=== PATIENT | male | born 1975 | race Caucasian/White ===

== ENCOUNTER 2016-09-29 20:13 | Inpatient (IN) ==
[2016-09-29] MEDS ORDERED: metroNIDAZOLE INJ 500 MG in PREMIX 1 EACH IV STA (20:42)
[2016-09-29] MEDS ORDERED: DICYCLOMINE 20 MG/2 ML AMP IM ONE ×2 (20:42→20:50)
[2016-09-29] MEDS ORDERED: PANTOPRAZOLE 40 MG VIAL IV STA (20:42)
[2016-09-29] MEDS ORDERED: SODIUM CHLORIDE 0.9% 1,000 ML IV STA (20:42)
[2016-09-29] MEDS ORDERED: ONDANSETRON 4 MG/2 ML VIAL IV STA ×2 (20:42→22:16)
[2016-09-29] MEDS ORDERED: METOCLOPRAMIDE 10 MG/2 ML VIAL IV STA (20:42)
--- NOTE | 2016-09-29 20:47 | Emergency Department Note ---
Arrival - Arrival Chief Complaint: Abdominal / Flank Pain Stated Complaint: severe stomach pain ED Nursing Triage Note: pt to traige c/o abd pain since last . pt states pain would come / go but is worse after meals. Mode of Arrival: Ambulatory Limitations: No Limitations Source: Patient Time Seen by Provider: 09/29/16 20:42 - History of Present Illness HPI Narrative: This 41-year-old white male presents with one-week of persistent midepigastric abdominal pain associated with low-grade fever, nausea, and vomiting. He states pain is worse after meals but denies heartburn, belching, and water brash. He likewise denies any bright red blood per rectum or melena. The patient denies a history of pancreatitis, peptic ulcer disease, gallbladder problems, reflux, or colitis. He does have a history of fatty liver. Although currently uncomfortable he is in no acute medical distress. Onset (ago): week(s) (Patient presents 1 week post onset of symptoms) Allergies/Adverse Reactions: Allergies Allergy/AdvReac Type Severity Reaction Status Date / Time Amoxicillin [From Augmentin] AdvReac Gastrointestinal Verified 09/29/16 20:26 Upset clavulanic acid AdvReac Gastrointestinal Verified 09/29/16 20:26 [From Augmentin] Upset Home Medications: Home Medications Medication Instructions Recorded Confirmed Type Unable To Obtain [Unable to Obtain] 09/29/16 09/29/16 History Review of System - Review of System 12 point system: reviewed and no additional remarkable complaints except as stated - Review of System Constitutional: Present: as per HPI Gastrointestinal: Present: as per HPI Medical,Surgical,& Family Hx - Medical History Neurology: History of: Multiple Sclerosis Gastrointestinal: History of: Liver Problems (fatty liver) - Social History Smoking Status: Unknown if ever smoked Frequency of Alcohol Use: None Type of Drug Use: None Exam Physical Examination: GENERAL: Well developed, well nourished white male in no acute distress. HEENT: Normocephalic. No trauma. Moist mucous membranes. EOMI. PERRLA. ENT NML NECK: Supple. No adenopathy. CARDIAC: Regular. No murmurs. Heart rate 72 CHEST: Clear to auscultation. No respiratory distress. O2 sat 90 ABDOMEN: Distended and firm with midepigastric tenderness and hypoactive bowel sounds. EXTREMITIES: No trauma. Normal ROM. No pedal edema. SKIN: No diaphoresis. No rash. NEURO: Alert. Neuro intact. No focal deficits. Vital Signs: Vital Signs Temperature 98.5 F 09/29/16 20:20 Pulse Rate 72 09/29/16 20:20 Respiratory Rate 20 09/29/16 20:20 Blood Pressure 148/106 09/29/16 20:20 O2 Sat by Pulse Oximetry 98 09/29/16 20:20 Course - Reevaluation(s) Reevaluation #1: Discussed with patient the results of his studies which would indicate constipation, elevated LFTs outside the realm of fatty liver, and a 10 mm noncalcified pulmonary nodule all of which would be best served by hospitalization and workup. - Consultations Consultation #1: Discussed with hospitalist service who will admit for further evaluation and treatment. Results - Labs CBC & BMP: 09/29/16 20:47 09/29/16 20:47 Labs: I reviewed the laboratory noted the [id number] elevation in liver function studies. - Diagnostic Findings Procedure: Chest x-ray: image reviewed by me, report reviewed by me (Normal chest), CT Abdomen and Pelvis: image reviewed by me, report reviewed by me (10 mm pulmonary nodule, splenomegaly, severe fatty liver, fecal stasis) Disposition Clinical Impression: Abnormal liver functions, Fatty liver with splenomegaly, 10 mm pulmonary nodule , Constipation Case discussed with: patient, patient's family Disposition: Still a Patient Condition: Stable Time of Disposition: 22:33
[2016-09-29 20:49] LABS: Immature Granulocytes % 0.5 %; Immature Granulocytes Absolute 0.04 #; Mean Platelet Volume 10.2 FL (9.6-12.0); Monocytes % 7.8 % (1.7-12.7); Red Cell Distribution Width 12.3 % (9.3-17.3)
[2016-09-29] MEDS ORDERED: METOCLOPRAMIDE 10 MG/2 ML VIAL ONE (20:49)
[2016-09-29] MEDS ORDERED: ONDANSETRON 4 MG/2 ML VIAL ONE ×2 (20:49→22:18)
[2016-09-29] MEDS ORDERED: PANTOPRAZOLE 40 MG VIAL IV ONE (20:49)
[2016-09-29] MEDS ORDERED: metroNIDAZOLE 500 MG/100 ML PREMIX IV ONE (20:50)
[2016-09-29 20:57] LABS: Basophils % 0.5 % (0.0-0.8); Eosinophils # 0.2 10*3/uL (0.0-0.87); Eosinophils % 2.5 % (0.00-10.9); Hemoglobin 17.9 GM/DL (14.0-18.0); Lymphocytes # 0.9 10*3/uL (1.4-4.0); Lymphocytes % 12.4 % (21.2-54.2); Mean Corpuscular HGB Conc 36.9 GM/DL (32-36); Mean Corpuscular Hemoglobin 32 PG (27-34); Mean Corpuscular Volume 87.5 FL (87-102); Monocytes # 0.6 10*3/uL (0.11-0.8); Neutrophils # 5.8 10*3/uL (1.4-7.4); Neutrophils % 76.3 % (38.7-73.9); Platelet Count 191 T/CUMM (130-400); Red Blood Count 5.54 MC/CUMM (3.8-5.5); White Blood Count 7.6 T/CUMM (4-12)
--- NOTE | 2016-09-29 20:57 | EKG Report ---
Stationary ECG Study [facility] ER Test Date: 09/29/2016 8:56:33 PM Pat Name: LUIS MICHAELS Department: Room: Gender: M [employer]: ALESSANDRO : 1975 Requested by: Kenny Hines Order Number: [id number] Reading MD: OLIVIA CHOI Intervals [place] Rate: 70 P: 39 MS: 138 QRS: 56 QRSD: 90 T: 50 QT: 371 QTc: 392 Interpretive Statements SINUS RHYTHM Electronically Signed On 10-02-16 15:06:58 CDT by OLIVIA CHOI [email or web address]
[2016-09-29 21:00] LABS: Hematocrit 48.5 VOL% (42.0-52.0)
--- NOTE | 2016-09-29 21:19 | XRay Report ---
Portable chest. Indication: Generalized abdominal pain. Chest pain. Comparison: January 24, 2013. The heart is upper limits of normal in size. The pulmonary vasculature is normal. The lung cha are clear. Suspected calcified granuloma at the left lung base, stable. Degenerative or posttraumatic changes are seen at the left acromioclavicular joint. Impression: No acute abnormality or interval change seen. PROCEDURE INTERPRETED AT [facility] DEPARTMENT OF RADIOLOGY Final Report Signed by: Dr. Annabel Roy
[2016-09-29 21:23] LABS: Lactic Acid 1.2 MMOL/L (0.4-2.0)
[2016-09-29 21:27] LABS: Alanine Aminotransferase 484 U/L (16-61); Albumin 4.4 G/DL (3.4-5.0); Alkaline Phosphatase 232 U/L (45-117); Amylase 44 U/L (25-115); Aspartate Amino Transferase 396 U/L (0-37); Blood Urea Nitrogen 11 MG/DL (7-18); Glucose 84 MG/DL (74-106); Osmolality,Calculated 278.3 MOS/KG (273-304); Potassium 4.1 MMOL/L (3.5-5.1); Sodium 141 MMOL/L (136-145); Total Protein 7.3 G/DL (6.4-8.3); Troponin I Only < 0.015 NG/ML (0.00-0.045)
--- NOTE | 2016-09-29 22:09 | CT Report ---
CT of the abdomen and pelvis with intravenous contrast. No oral contrast was administered. 100 cc Omni 350. Axial images with sagittal and coronal reconstructions. Indication: Generalized abdominal pain. The heart is normal in size. There is a calcified granuloma in the left lingula. There is a noncalcified nonspecific pulmonary nodule in the medial aspects of the right lower lobe measuring 10.3 mm. The abdominal aorta is of normal caliber. A neurostimulator device is in place. The liver is normal in size. There is severe fatty infiltration of the liver. The spleen is enlarged with dimensions of 13 x 15 x 6 and a splenic index of 1170. Within the gallbladder, floating material is seen, probably representing calcium poor gallstones. There is no biliary ductal dilatation. There is no adrenal enlargement. No pancreatic abnormality is seen. There are subcentimeter lymph nodes present within the retroperitoneum. The gastric contour is grossly normal. The loops of small intestine are not dilated. Subcentimeter mesenteric lymph nodes are present. There is no small intestinal wall thickening seen. The terminal ileum and appendix present a normal appearance. There is moderately prominent fecal material throughout the length of the colon. The colon demonstrates no wall thickening. There are a few scattered diverticuli present. No evidence of obstruction. There is a left inguinal hernia containing only fat. There is calcification within a borderline enlarged prostate gland. There is no inguinal or iliac chain lymphadenopathy. There is exaggerated lordosis of the lumbar spine with osteophytes present anteriorly. Impression: 1. 10.3 mm nonspecific pulmonary nodule in the right lower lobe. PET scan recommended for further evaluation. 2. Severe fatty liver. 3. Splenomegaly. The CT exam was performed using one or more of the following dose reduction techniques: Automated exposure control, adjustment of the mA and/or kV according to patient size, or use of iterative reconstruction technique. PROCEDURE INTERPRETED AT [facility] DEPARTMENT OF RADIOLOGY Final Report Signed by: Dr. Annabel Roy
[2016-09-29] MEDS ORDERED: HYDROmorphone 2 MG/1 ML VIAL IV STA (22:16)
[2016-09-29] MEDS ORDERED: HYDROmorphone 2 MG/1 ML VIAL ONE (22:19)
[2016-09-29] MEDS ORDERED: METHYLNALTREXONE 12 MG/0.6 ML VIAL SUBCUT ONE (23:28)
[2016-09-29 23:43] LABS: Apearance,Urine CLEAR (Clear); Bilirubin,Urine Negative (Negative); Blood, Urine Negative (Negative); Glucose,Urine (UA) Negative (Negative); Ketones,Urine Negative (Negative); Mucus,Urine Occasional /LPF (Occasional); Nitrite,Urine Negative (Negative); Protein,Urine Negative; RBC,Urine <1 /HPF (0-4); Urine Color Amber (Yellow); Urine Specific Gravity 1.028 (1.001-1.035); Urine Urobilinogen < 2.0 EU/DL (0.2-1.0); WBC,Urine <1 /HPF (0-6)
--- NOTE | 2016-09-30 00:29 | Hospitalist History & Physical ---
Assessment and Plan (1) Abdominal pain Status: Acute Current Visit: Yes (2) Constipation Status: Acute Current Visit: Yes (3) History of multiple sclerosis Status: Acute Current Visit: Yes (4) Pulmonary nodule in right lower lobe Status: Acute Assessment and plan: Do feel that patient's abdominal pain is associated with constipation as documented on CT scan. He is on chronic Percocets will give him a dose of her left store. See if that helps and give him a dose of MiraLAX tonight.: Get Dr. Monte to see him for his increase in transaminases. This might just be a progression of the fatty liver although they seem a little bit on the higher side than normal for him. The CT scan of his abdomen recommended a PET scan for the nonspecific pulmonary nodule that will be ordered for in the morning Current Visit: Yes History of Present Illness Chief complaint: Abdominal pain History of present illness: Mr. Jhaveri is a 41 year old male with past medical history significant for fatty liver and multiple sclerosis who presents to our hospital complaining about abdominal pain. Said it started last . It has been steadily increasing. Decided to come up to our hospital for further evaluation. He reports some low-grade fever nausea and vomiting. The pain seems worse after meals. I was consulted to admit him to the emergency room he normally sees Dr. Monte. Home Medications Medication Instructions Recorded Confirmed Type Unable To Obtain [Unable to Obtain] 09/29/16 09/29/16 History Allergies Allergy/AdvReac Type Severity Reaction Status Date / Time Amoxicillin [From Augmentin] AdvReac Gastrointestinal Verified 09/29/16 20:26 Upset clavulanic acid AdvReac Gastrointestinal Verified 09/29/16 20:26 [From Augmentin] Upset Medical,Surgical,& Family Hx - Medical History Neurology: History of: Multiple Sclerosis Gastrointestinal: History of: Liver Problems (fatty liver) - Surgical History Orthopedic Surgeries: Surgical HX of;: Orthopedic Surgery - Family History Family History: Reports;: Family Cancer - Social History Smoking Status: Unknown if ever smoked Frequency of Alcohol Use: None Type of Drug Use: None 12 point system: reviewed and no additional remarkable complaints except as stated Exam - Constitutional Vitals: Period Temp Pulse Resp BP Sys/Hoffman Pulse Ox Last 24 Hr 98.5 F-98.5 F 70-76 16-20 128-148/79-106 97-99 General appearance: normal weight - Head Head exam: Present: normal inspection - Eye Eye exam: Present: EOMI Pupils: Present: SITA - ENT ENT exam: Present: normal exam - Neck Neck exam: Present: normal inspection - Respiratory Respiratory exam: Present: clear to auscultation bilaterally - Cardiovascular Cardiovascular exam: Present: regular rate and rhythm - GI/Abdominal GI/Abdominal exam: Present: normal bowel sounds, tenderness (Upper quadrants) - Extremities Exam Extremities exam: Present: normal inspection - Back Exam Back exam: Present: normal inspection - Neurological Exam Neurological exam: Present: alert - Psychiatric Psychiatric exam: Present: normal affect - Skin Skin exam: Present: normal color Results - Labs CBC & BMP: 09/29/16 20:47 09/29/16 20:47
[2016-09-30] MEDS: POLYETHYLENE GLYCOL POWDER 17 GM PACK PO SCH ×2 (01:03→10:22)
[2016-09-30 05:09] LABS: Hepatitis B Surface Ag Quant < 0.10 Index; Hepatitis B Surface Ag Result Negative (Negative)
[2016-09-30 05:42] LABS: Hepatitis A Ab IgM Quant 0.07 Index; Hepatitis A Ab IgM Result Negative (Negative); Hepatitis B Core IgM Quant 0.18 Index; Hepatitis B Core IgM Result Negative (Negative); Hepatitis C Virus Ab Quant 0.12 Index; Hepatitis C Virus Ab Result Negative (Negative)
[2016-09-30 06:33] LABS: Basophils % 0.4 % (0.0-0.8); Eosinophils # 0.1 10*3/uL (0.0-0.87); Eosinophils % 2.4 % (0.00-10.9); Hematocrit 43.9 VOL% (42.0-52.0); Hemoglobin 16.1 GM/DL (14.0-18.0); Immature Granulocytes % 0.4 %; Immature Granulocytes Absolute 0.02 #; Lymphocytes # 1.1 10*3/uL (1.4-4.0); Mean Corpuscular HGB Conc 36.7 GM/DL (32-36); Mean Corpuscular Hemoglobin 32 PG (27-34); Mean Corpuscular Volume 87.8 FL (87-102); Mean Platelet Volume 11.1 FL (9.6-12.0); Monocytes # 0.5 10*3/uL (0.11-0.8); Neutrophils # 3.8 10*3/uL (1.4-7.4); Neutrophils % 68.8 % (38.7-73.9); Platelet Count 156 T/CUMM (130-400); Red Cell Distribution Width 12.5 % (9.3-17.3); White Blood Count 5.5 T/CUMM (4-12)
[2016-09-30 06:41] LABS: Albumin 3.8 G/DL (3.4-5.0); Calcium 8.3 MG/DL (8.5-10.1); Osmolality,Calculated 280.1 MOS/KG (273-304); Potassium 3.7 MMOL/L (3.5-5.1); Total Protein 6.2 G/DL (6.4-8.3)
[2016-09-30] MEDS: PANTOPRAZOLE 40 MG TABLET PO SCH (10:22)
[2016-09-30] MEDS: ENOXAPARIN 40 MG/0.4 ML SYRINGE SUBCUT SCH (10:23)
--- NOTE | 2016-09-30 11:27 | Gastrointestinal Consult Note ---
Assessment and Plan (1) Abdominal pain Status: Acute Assessment and plan: 09/30-1 week history of abdominal pain with episodes of nausea and vomiting. This is now improved following large bowel movement last night. History of daily Percocet use. CT findings noted below with questionable gallstone. Plan an addendum to follow Dr. Monte. Current Visit: Yes (2) Elevated liver enzymes Status: Acute Assessment and plan: 09/30-findings of elevated liver enzymes on admission, now slightly trending upward. History reported by patient of elevated enzymes over the last year with improvement following decrease in medication therapy. Questionable finding on CT of gallstone. Obtain abdominal ultrasound tomorrow to further evaluate. Recheck liver enzymes in the morning. Plan an addendum to followed by Dr. Monte. Current Visit: Yes History of Present Illness Chief complaint: Abdominal pain, elevated liver enzymes History of present illness: Mr. Jhaveri is a 41 year old male who presented to the hospital with complaints of abdominal pain 4 days. Patient states that one week ago he had an onset of upper abdominal pain that came on rather gradually. He states his the days progressed the pain slowly intensified and became associated with nausea and vomiting as well as low-grade fever a couple of days ago. He states that the pain would worsen when he would eat and nothing seemed to improve the pain for the most part. Patient denies any coffee-ground emesis or hematemesis with the vomiting. He states that he has been having bowel movements upwards of 5-6 per day which he describes as a normal movement without liquid stool. He states that this is his normal bowel pattern. He denies any melena or hematochezia associated with this. Patient states that he had a colonoscopy when he was in his 20s for symptoms of IBS with varying episodes of constipation and diarrhea however states that this seemed to have resolved years ago. Patient takes Percocets daily for history of MS. He also has a history of elevated liver enzymes which she is seen Dr. Monte in the past far. He states at that time some of his medications were decreased and his liver enzymes reportedly improved. On admission CT with IV contrast noted to show a right lower lobe pulmonary nodule, fatty liver, and splenomegaly. Also noted moderate prominent fecal material throughout the length of the colon with no wall thickening or obstruction. no gallbladder findings were noted other than floating material possibly representing calcium for gallstones. No ductal dilatation noted. Patient denies family history of gallbladder problems. On admission patient's transaminases noted to be elevated with AST 396, ALT 484, alkaline phosphatase 232. Bilirubin also elevated at 5.8. These are slightly more elevated today. Hepatitis panel is negative. He denies history of alcohol use now or in the past. Does report he was given laxatives last night and had a very large bowel movement and at this time his abdominal pain is now resolved. Home Medications Medication Instructions Recorded Confirmed Type Cholecalciferol (Vitamin D3) 2,000 unit PO DAILY 09/30/16 09/30/16 History [Vitamin D3] Glatiramer Acetate [Copaxone] 40 mg SQ QOTHER DAY 09/30/16 09/30/16 History Mirtazapine 15 mg PO BEDTIME 09/30/16 09/30/16 History Oxycodone HCl/Acetaminophen 7.5 - 325 mg PO Q4-6H PRN 09/30/16 09/30/16 History [Percocet 7.5-325 mg Tablet] Testosterone [Androgel 1.62% Gel 81 mg TOP DAILY 09/30/16 09/30/16 History PUMP] Vitamin B Complex 1,000 mcg PO DAILY 09/30/16 09/30/16 History Zolpidem [Ambien] 10 mg PO BEDTIME 09/30/16 09/30/16 History Allergies Allergy/AdvReac Type Severity Reaction Status Date / Time Amoxicillin [From Augmentin] AdvReac Gastrointestinal Verified 09/29/16 20:26 Upset clavulanic acid AdvReac Gastrointestinal Verified 09/29/16 20:26 [From Augmentin] Upset Medical,Surgical,& Family Hx - Medical History Neurology: History of: Multiple Sclerosis HEENT: History of: Eye Problem (wear glasses) Respiratory: History of: Pneumonia (2016) Gastrointestinal: History of: Liver Problems (fatty liver) Hematology: No history of: Blood Transfusion Reaction - Surgical History Thoracic Surgeries: Patient denies;: Organ Transplant, Lobectomy Neurologic Surgeries: Patient denies: Neurologic Surgery HEENT Surgeries: Surgical HX of: Eye Surgery Patient denies: Tonsilectomy & Adenoidectomy Abdominal Surgeries: Surgical HX of: Colonoscopy Orthopedic Surgeries: Surgical HX of;: Implanted Devices (medication pump), Orthopedic Surgery (right ankle, screws to both feet), Spinal Surgery (cyst removed) - Family History Family History: Reports;: Family Cancer (sister and dad), Family Diabetes ( sister and dad), Family Hypertension, Family Stroke (grandparents) - Social History Smoking Status: Never smoker Frequency of Alcohol Use: None Type of Drug Use: None 12 point system: reviewed and no additional remarkable complaints except as stated - Constitutional Constitutional: Present: as per HPI - EENT Eyes: Present: as per HPI Ears: Present: as per HPI Nose, mouth and throat: Present: as per HPI - Cardiovascular Cardiovascular: Present: as per HPI - Respiratory Respiratory: Present: as per HPI - Gastrointestinal Gastrointestinal: Present: as per HPI, abdominal pain, nausea, vomiting - Genitourinary Genitourinary: Present: as per HPI - Musculoskeletal Musculoskeletal: Present: as per HPI, arthralgias - Neurological Neurological: Present: as per HPI - Psychiatric Psychiatric: Present: as per HPI - Endocrine Endocrine: Present: as per HPI - Hematologic/Lymphatic Hematologic/Lymphatic: Present: as per HPI Exam - Constitutional Vitals: Period Temp Pulse Resp BP Sys/Hoffman Pulse Ox Last 24 Hr 97.2 F-98.5 F 58-80 16-20 113-148/68-106 95-99 General appearance: normal weight, no acute distress - Head Head exam: Present: normal inspection, normocephalic - Eye Eye exam: Present: other (Lids and conjunctive are unremarkable). Absent: scleral icterus - ENT ENT exam: Present: normal exam, normal oropharynx - Neck Neck exam: Present: normal inspection - Respiratory Respiratory exam: Present: clear to auscultation bilaterally. Absent: rales, rhonchi, wheezes - Cardiovascular Cardiovascular exam: Present: regular rate and rhythm. Absent: diastolic murmur , JVD, systolic murmur - GI/Abdominal GI/Abdominal exam: Present: normal bowel sounds, soft. Absent: ascites, distended, mass, organomegaly, tenderness - Extremities Exam Extremities exam: Present: normal inspection, full ROM - Back Exam Back exam: Present: normal inspection - Neurological Exam Neurological exam: Present: alert, oriented X3 - Psychiatric Psychiatric exam: Present: normal affect, normal mood - Skin Skin exam: Present: normal color, warm, dry Results - Labs CBC & BMP: 09/30/16 04:42 09/30/16 04:42 Lab Results: I have reviewed the past 24 hour labs Quality Measures - Stroke Symptom Onset Unknown: No
[2016-09-30] MEDS: GLATIRAMER ACETATE 40 MG SQ SCH (14:29)
[2016-09-30] MEDS: CIPROFLOXACIN INJ 400 MG in PREMIX 1 EACH IV SCH (18:08)
[2016-09-30] MEDS: oxyCODONE/ACETAMINOPHEN 5-325 MG TABLET PO PRN (18:09)
[2016-09-30] MEDS: ZALEPLON 5 MG CAPSULE PO SCH (21:29)
[2016-09-30] MEDS: MIRTAZAPINE 15 MG TABLET PO SCH (21:29)
[2016-10-01] MEDS: CIPROFLOXACIN INJ 400 MG in PREMIX 1 EACH IV SCH ×2 (04:22→16:54)
[2016-10-01 07:21] LABS: Albumin 3.7 G/DL (3.4-5.0); Bilirubin,Direct 3.8 MG/DL (0.0-0.20); Bilirubin,Indirect 3.1 MG/DL (0.0-1.0); Bilirubin,Total 6.9 MG/DL (0.2-1.0); Total Protein 5.7 G/DL (6.4-8.3)
--- NOTE | 2016-10-01 09:06 | Ultrasound Report ---
History is abdominal pain and elevated liver enzymes The liver is 16.9 cm in length. There is increased echogenicity of the liver with attenuation of the ultrasound beam There are multiple gallstones with large amount of sludge within the gallbladder. Gallbladder wall thickness measures up to 4.5 mm with mild indistinctness of the gallbladder wall No biliary ductal dilatation is seen The spleen is 14.9 cm in length No renal hydronephrosis seen bilaterally The visualized pancreas, IVC, and aorta are normal in size Impression: 1. Cholelithiasis with large amount of gallbladder sludge and diffuse gallbladder wall thickening which is nonspecific but raises question of acute cholecystitis. Clinical correlation requested 2. Fatty infiltration of the liver 3. Mild splenomegaly The Ultrasound images were captured and stored. PROCEDURE INTERPRETED AT [facility] DEPARTMENT OF RADIOLOGY Final Report Signed by: Dr. Mei Roy
[2016-10-01] MEDS: ENOXAPARIN 40 MG/0.4 ML SYRINGE SUBCUT SCH (10:16)
[2016-10-01] MEDS: PANTOPRAZOLE 40 MG TABLET PO SCH (10:17)
[2016-10-01] MEDS: POLYETHYLENE GLYCOL POWDER 17 GM PACK PO SCH (10:17)
--- NOTE | 2016-10-01 11:17 | Gastrointestinal Progress Note ---
Assessment and Plan - Time spent with patient Time spent with patient: Greater than 30 minutes (1) Cholelithiasis and acute cholecystitis with obstruction Status: Acute Current Visit: Yes (2) Elevated liver enzymes Status: Acute Current Visit: Yes (3) Other specified counseling Status: Acute Current Visit: Yes Gastroenterology - PN: Subj Interval history: PLEASE NOTE -- automatic citation of patient information is unavoidable in this electronic note. I have made a reasonable effort to review the information cited , but it is not a part of my evaluation, impression, or recommendation unless specifically discussed in the dictated text that follows. As well, voice recognition software was used in the creation of this clinical note. Reasonable effort was made to identify and correct gross errors. Despite proofreading, errors in timber incisor operator may be present, including nonsense verbiage at times. If you encounter such an error, please contact me at for discussion and correction. -- Kyree Chief complaint: abdominal pain Subjective: the patient is a 41-year-old male seen for follow-up of abdominal pain and elevated liver associated enzymes. Liver associated enzymes remain elevated but patient continues to deny clinical symptoms. Vital signs have remained stable and he has demonstrated no fever. He is eating and drinking comfortably. Antibiotic was started yesterday and he seems to be tolerating that. He currently reports feeling about the same as yesterday. He is not having fever, chills, nausea, vomiting, or abdominal pain. Medications: ciprofloxacin, Lovenox, Remeron, Copaxone, Zofran, Percocet, Protonix, MiraLAX, Sonata Review of Symptoms: 12 point review of symptoms was negative except as noted above Physical examination: Vital Signs: Current vital signs reviewed. General Appearance: well-appearing. Not acutely ill. Head: Normocephalic. Eyes: positive scleral icterus. No scleral injection. No conjunctival pallor. Oral Cavity: Odor of breath was normal. No drooling was observed. Lips showed no abnormalities. Lungs: Respiration rhythm and depth was normal. Cardiovascular: Heart rate and rhythm were normal. Abdomen: abdomen was not distended. Abdominal auscultation revealed no abnormalities. Ascites was not discovered. Abdominal palpation revealed no tenderness and no hepatosplenomegaly. Musculoskeletal System: musculoskeletal system was grossly normal. Neurological: level of consciousness was normal. Speech was normal. No coordination/cerebellum abnormalities were noted. Skin: Gen. appearance was normal. There was obvious jaundice. No skin lesions were appreciated. Laboratory: total bilirubin 6.9, direct bilirubin 3.8, AST 443, ALT 815, alkaline phosphatase 233, hepatitis panel negative Radiology: -- right upper quadrant ultrasound, October 01, 2016: cholelithiasis with large amount of gallbladder sludge and diffuse gallbladder wall thickening consistent with acute cholecystitis; no biliary ductal dilation; fatty infiltration of the liver; mild splenomegaly -- CT of the abdomen and pelvis, September 30, 2016: fatty infiltration of the liver; cholelithiasis; no biliary ductal dilation Impressions: 1. Cholelithiasis with possible cholecystitis -- this is consistent with the patient's reported index abdominal pain. The pattern of enzyme elevation is also consistent with choledocholithiasis though direct bilirubin is not quite as high as I might expect and there is no radiologic evidence of biliary ductal dilation. If cholecystitis is present, it is surprising. It is possible that his underlying neuropathy is mitigating this in some way. I recommend surgical consultation for evaluation need for cholecystectomy. I recommend HIDA scan for further evaluation of hepatobiliary function and screen for biliary obstruction. We will follow up with further recommendations pending the result of that study. 2. Elevated liver associated enzymes -- there is evidence of both obstruction and hepatocellular insult. The overall pattern may be multifactorial with the acute component related to gallbladder disease. As discussed above, I will order HIDA scan and follow up with further recommendations. 3. Other specified counseling -- Patient seen for greater than 30 minutes. Greater than 50% of this time was spent counseling regarding differential diagnosis, likely diagnosis,, diagnostic and therapeutic options, risks, benefits, and alternatives to procedures and medications, informed consent, and plan of care generally. Patient has expressed understanding and wishes to proceed. Recommendations: -- continued supportive care -- continue monitoring liver associated enzymes -- HIDA scan -- general surgery consultation -- we will continue to follow with you Exam (Progress Note) - Constitutional Vitals: Period Temp Pulse Resp BP Sys/Hoffman Pulse Ox Last 24 Hr 97 F-98.6 F 61-76 18-20 92-132/55-80 92-97 Results - Labs CBC & BMP: 09/30/16 04:42 09/30/16 04:42
--- NOTE | 2016-10-01 14:31 | General Surgery Consult Note ---
Assessment and Plan (1) Cholelithiasis and acute cholecystitis with obstruction Status: Acute Assessment and plan: This patient does have gallstones and some wall thickening. However, his exam is completely benign he has no tenderness to support a diagnosis of cholecystitis at this time. In addition, his bilirubin and LFTs indicate the possibility of choledocholithiasis even though the bile duct has not become dilated on imaging. HIDA scan has been ordered for tomorrow. I will continue to follow the patient but I think an ERCP will be beneficial prior to any surgery to evaluate his bile duct more carefully. In addition, the splenomegaly may indicate some degree of cirrhosis which could explain some of the liver function panel abnormalities and we have to consider this carefully prior to pursuing any surgery and would like to see these numbers are normalized as much as possible prior to pursuing any sort of surgery on the gallbladder. However, given his history of abdominal pain in the upper quadrant and is positive imaging findings I think addressing his gallbladder during this hospital stay would be beneficial if it can be done safely. Current Visit: Yes History of Present Illness Chief complaint: Abdominal pain with jaundice History of present illness: Mr. Jhaveri is a 41 year old male admitted with a one-week history of intermittent bilateral upper quadrant abdominal pain with some nausea but no vomiting. He was admitted to the hospital and has developed worsening jaundice and ultrasound today showed stones with gallbladder wall thickening to 4.5 mm. Bile duct was normal in size on ultrasound and on recent CT scan with the patient also has splenomegaly. Platelet count is normal. Patient has nonspecific elevated liver function panel. Home Medications Medication Instructions Recorded Confirmed Type Cholecalciferol (Vitamin D3) 2,000 unit PO DAILY 09/30/16 09/30/16 History [Vitamin D3] Glatiramer Acetate [Copaxone] 40 mg SQ QOTHER DAY 09/30/16 09/30/16 History Mirtazapine 15 mg PO BEDTIME 09/30/16 09/30/16 History Oxycodone HCl/Acetaminophen 7.5 - 325 mg PO Q4-6H PRN 09/30/16 09/30/16 History [Percocet 7.5-325 mg Tablet] Testosterone [Androgel 1.62% Gel 81 mg TOP DAILY 09/30/16 09/30/16 History PUMP] Vitamin B Complex 1,000 mcg PO DAILY 09/30/16 09/30/16 History Zolpidem [Ambien] 10 mg PO BEDTIME 09/30/16 09/30/16 History Allergies Allergy/AdvReac Type Severity Reaction Status Date / Time Amoxicillin [From Augmentin] AdvReac Gastrointestinal Verified 09/29/16 20:26 Upset clavulanic acid AdvReac Gastrointestinal Verified 09/29/16 20:26 [From Augmentin] Upset Medical,Surgical,& Family Hx - Medical History Neurology: History of: Multiple Sclerosis HEENT: History of: Eye Problem (wear glasses) Respiratory: History of: Pneumonia (2016) Gastrointestinal: History of: Liver Problems (fatty liver) Hematology: No history of: Blood Transfusion Reaction - Surgical History Thoracic Surgeries: Patient denies;: Organ Transplant, Lobectomy Neurologic Surgeries: Patient denies: Neurologic Surgery HEENT Surgeries: Surgical HX of: Eye Surgery Patient denies: Tonsilectomy & Adenoidectomy Abdominal Surgeries: Surgical HX of: Colonoscopy Orthopedic Surgeries: Surgical HX of;: Implanted Devices (medication pump), Orthopedic Surgery (right ankle, screws to both feet), Spinal Surgery (cyst removed) - Family History Family History: Reports;: Family Cancer (sister and dad), Family Diabetes ( sister and dad), Family Hypertension, Family Stroke (grandparents) - Social History Smoking Status: Never smoker Frequency of Alcohol Use: None Type of Drug Use: None - Constitutional Constitutional: Present: as per HPI - EENT Nose, mouth and throat: Present: as per HPI - Cardiovascular Cardiovascular: Present: as per HPI - Respiratory Respiratory: Present: as per HPI - Gastrointestinal Gastrointestinal: Present: as per HPI - Genitourinary Genitourinary: Present: as per HPI - Musculoskeletal Musculoskeletal: Present: as per HPI - Neurological Neurological: Present: as per HPI - Endocrine Endocrine: Present: as per HPI Hematologic/Lymphatic: Present: as per HPI Exam - Constitutional Vitals: Period Temp Pulse Resp BP Sys/Hoffman Pulse Ox Last 24 Hr 97 F-98.5 F 61-76 18-19 92-126/55-80 92-97 General appearance: no acute distress, over weight - Head Head exam: Present: normal inspection, normocephalic - Eye Eye exam: Present: EOMI, scleral icterus Pupils: Present: SITA - ENT ENT exam: Present: normal exam Mouth exam: Present: normal external inspection, normal voice - Neck Neck exam: Present: normal inspection, trachea midline - Respiratory Respiratory exam: Present: clear to auscultation bilaterally. Absent: accessory muscle use, chest wall tenderness - Cardiovascular Cardiovascular exam: Present: RRR. Absent: systolic murmur, tachycardia - GI/Abdominal GI/Abdominal exam: Present: soft. Absent: Mejia's sign, tenderness, rebound - Extremities Exam Extremities exam: Present: normal inspection, normal capillary refill - Back Exam Back exam: Present: normal inspection - Neurological Exam Neurological exam: Present: alert, oriented X3 Speech: Present: normal - Skin Skin exam: Present: normal color, warm Quality Measures - Stroke Symptom Onset Unknown: No Results - Labs CBC & BMP: 09/30/16 04:42 09/30/16 04:42 - Diagnostic Findings Procedure: CT Abdomen and Pelvis: image reviewed by me, report reviewed by me, Ultrasound: report reviewed by me
[2016-10-01] MEDS: oxyCODONE/ACETAMINOPHEN 5-325 MG TABLET PO PRN (14:45)
--- NOTE | 2016-10-01 17:07 | Hospitalist Progress Note ---
Assessment and Plan (1) Abdominal pain Status: Acute Current Visit: Yes (2) Constipation Status: Acute Current Visit: Yes (3) History of multiple sclerosis Status: Acute Current Visit: Yes (4) Pulmonary nodule in right lower lobe Status: Acute Current Visit: Yes (5) Cholelithiasis and acute cholecystitis with obstruction Status: Acute Assessment and plan: HIDA scan tomorrow GI and surgery assisting Current Visit: Yes Hospitalist: Subjective Interval history: No acute events overnight. Patient denies abdominal pain, N/V. Exam - Constitutional Vitals: Period Temp Pulse Resp BP Sys/Hoffman Pulse Ox Last 24 Hr 97 F-98.5 F 61-76 18-19 92-126/55-80 92-96 General appearance: over weight - Head Head exam: Present: normocephalic, atraumatic - Eye Eye exam: Present: EOMI Pupils: Present: SITA - ENT ENT exam: Present: normal exam - Neck Neck exam: Present: normal inspection - Respiratory Respiratory exam: Present: clear to auscultation bilaterally. Absent: rhonchi, wheezes - Cardiovascular Cardiovascular exam: Present: regular rate and rhythm - GI/Abdominal GI/Abdominal exam: Present: normal bowel sounds, soft. Absent: tenderness, rebound - Extremities Exam Extremities exam: Present: normal inspection - Back Exam Back exam: Present: normal inspection - Neurological Exam Neurological exam: Present: alert, oriented X3 - Psychiatric Psychiatric exam: Present: normal affect, normal mood - Skin Skin exam: Present: warm, intact Results - Labs CBC & BMP: 09/30/16 04:42 09/30/16 04:42 Quality Measures - Stroke Symptom Onset Unknown: No
[2016-10-01] MEDS: MIRTAZAPINE 15 MG TABLET PO SCH (20:43)
[2016-10-01] MEDS: ZALEPLON 5 MG CAPSULE PO SCH (20:43)
[2016-10-02] MEDS: CIPROFLOXACIN INJ 400 MG in PREMIX 1 EACH IV SCH ×2 (04:29→15:45)
--- NOTE | 2016-10-02 09:09 | Nuclear Medicine Report ---
HIDA scan with CCK. Indication: Right upper quadrant pain. Following the intravenous administration of 5 mCi technetium 99m Choletec, hepatic excretion is prompt and uniform. Gallbladder activity can be seen by 20 minutes. Bowel activity can be seen by 20 minutes. Following the oral administration of 8 ounces of ensure, and ejection fraction was calculated. Ejection fraction is 8%. No pain was experienced. Normal ejection fraction with oral stimulation, 35% or greater. Impression: Findings consistent with gallbladder dyskinesia. PROCEDURE INTERPRETED AT [facility] DEPARTMENT OF RADIOLOGY Final Report Signed by: Dr. Annabel Roy
[2016-10-02] MEDS: GLATIRAMER ACETATE 40 MG SQ SCH (09:41)
[2016-10-02] MEDS: ENOXAPARIN 40 MG/0.4 ML SYRINGE SUBCUT SCH (09:41)
[2016-10-02] MEDS: PANTOPRAZOLE 40 MG TABLET PO SCH (09:42)
[2016-10-02] MEDS: POLYETHYLENE GLYCOL POWDER 17 GM PACK PO SCH (09:42)
--- NOTE | 2016-10-02 09:51 | Gastrointestinal Progress Note ---
Assessment and Plan (1) Cholelithiasis and acute cholecystitis with obstruction Status: Acute Current Visit: Yes (2) Elevated liver enzymes Status: Acute Current Visit: Yes (3) Other specified counseling Status: Acute Current Visit: Yes Gastroenterology - PN: Subj Interval history: PLEASE NOTE -- automatic citation of patient information is unavoidable in this electronic note. I have made a reasonable effort to review the information cited , but it is not a part of my evaluation, impression, or recommendation unless specifically discussed in the dictated text that follows. As well, voice recognition software was used in the creation of this clinical note. Reasonable effort was made to identify and correct gross errors. Despite proofreading, errors in inspector fuel hose may be present, including nonsense verbiage at times. If you encounter such an error, please contact me at [phone] for discussion and correction. -- Kyree Chief complaint: abdominal pain Subjective: the patient is a 41-year-old male seen for follow-up of abdominal pain and elevated liver associated enzymes. Vital signs have remained stable and he has demonstrated no fever. He is eating and drinking comfortably. He underwent HIDA scan today with finding of biliary dyskinesia but no evidence of biliary obstruction. He currently reports feeling about the same as yesterday. He is not having fever, chills, nausea, vomiting, or abdominal pain. Case discussed with Dr. Ye who plans to take the patient for cholecystectomy with intraoperative cholangiogram tomorrow. Medications: ciprofloxacin, Lovenox, Remeron, Copaxone, Zofran, Percocet, Protonix, MiraLAX, Sonata Review of Symptoms: 12 point review of symptoms was negative except as noted above Physical examination: Vital Signs: Current vital signs reviewed. General Appearance: well-appearing. Not acutely ill. Head: Normocephalic. Eyes: positive scleral icterus. No scleral injection. No conjunctival pallor. Oral Cavity: Odor of breath was normal. No drooling was observed. Lips showed no abnormalities. Lungs: Respiration rhythm and depth was normal. Cardiovascular: Heart rate and rhythm were normal. Abdomen: abdomen was not distended. Abdominal auscultation revealed no abnormalities. Ascites was not discovered. Abdominal palpation revealed no tenderness and no hepatosplenomegaly. Musculoskeletal System: musculoskeletal system was grossly normal. Neurological: level of consciousness was normal. Speech was normal. No coordination/cerebellum abnormalities were noted. Skin: Gen. appearance was normal. There was obvious jaundice. No skin lesions were appreciated. Laboratory: ALT 733, AST 238, total bilirubin 4.9, alkaline phosphatase 247 Radiology: -- HIDA scan, October 02, 2016: prompt hepatic uptake and uniform hepatic excretion ; timely gallbladder activity; timely bowel activity; decreased ejection fraction (8%); no pain experienced; findings consistent with gallbladder dyskinesia -- right upper quadrant ultrasound, October 01, 2016: cholelithiasis with large amount of gallbladder sludge and diffuse gallbladder wall thickening consistent with acute cholecystitis; no biliary ductal dilation; fatty infiltration of the liver; mild splenomegaly -- CT of the abdomen and pelvis, September 30, 2016: fatty infiltration of the liver; cholelithiasis; no biliary ductal dilation Impressions: 1. Cholelithiasis with possible cholecystitis -- HIDA scan is consistent with gallbladder dyskinesia and inconsistent with extrahepatic biliary obstruction. There is evidence of cholelithiasis and it is possible the patient is experiencing transient papillary obstruction contributing to this problem. I agree with Dr. Ye that cholecystectomy with intraoperative: Paulo Bernardo is the most reasonable next out. 2. Elevated liver associated enzymes -- HIDA scan demonstrated prompt uptake and excretion of radio tracer, inconsistent with intrahepatic cholestasis. As discussed, patient will go for cholecystectomy tomorrow and we should monitor her liver associated enzymes until normal. 3. Other specified counseling -- Patient seen for greater than 30 minutes. Greater than 50% of this time was spent counseling regarding differential diagnosis, likely diagnosis,, diagnostic and therapeutic options, risks, benefits, and alternatives to procedures and medications, informed consent, and plan of care generally. Patient has expressed understanding and wishes to proceed. Recommendations: -- continued supportive care -- continue monitoring liver associated enzymes -- agree with cholecystectomy with intraoperative cholangiogram -- we will continue to follow with you. Dr. Monte will resume G.I. care for this patient tomorrow. Exam (Progress Note) - Constitutional Vitals: Period Temp Pulse Resp BP Sys/Hoffman Pulse Ox Last 24 Hr 97.6 F-98 F 59-65 18-20 106-137/57-85 92-97 Results - Labs CBC & BMP: 09/30/16 04:42 09/30/16 04:42
[2016-10-02 10:33] LABS: Albumin 4.1 G/DL (3.4-5.0); Bilirubin,Direct 2.4 MG/DL (0.0-0.20); Bilirubin,Indirect 2.5 MG/DL (0.0-1.0); Bilirubin,Total 4.9 MG/DL (0.2-1.0); Total Protein 6.7 G/DL (6.4-8.3)
[2016-10-02] MEDS: oxyCODONE/ACETAMINOPHEN 5-325 MG TABLET PO PRN (13:37)
[2016-10-02] MEDS ORDERED: MAGNESIUM HYDROXIDE SUSP 30 ML UDCUP PO PRN (14:27)
[2016-10-02] MEDS: MORPHINE 2 MG/1 ML SYRINGE IV PRN (14:56)
--- NOTE | 2016-10-02 16:09 | Hospitalist Progress Note ---
Assessment and Plan (1) Abdominal pain Status: Acute Assessment and plan: HIDA scan today consistent with gallbladder dyskinesia Possible cholecystectomy with intraoperative cholangiogram tomorrow IV morphine for pain Current Visit: Yes (2) Constipation Status: Acute Current Visit: Yes (3) History of multiple sclerosis Status: Acute Current Visit: Yes (4) Pulmonary nodule in right lower lobe Status: Acute Current Visit: Yes (5) Cholelithiasis and acute cholecystitis with obstruction Status: Acute Assessment and plan: GI and surgery assisting Current Visit: Yes Hospitalist: Subjective Interval history: No acute events overnight. Today reports abdominal pain, the same as on admission. Feels like he is constipated. Exam - Constitutional Vitals: Period Temp Pulse Resp BP Sys/Hoffman Pulse Ox Last 24 Hr 97.6 F-98.6 F 59-67 18-20 106-137/66-82 94-97 General appearance: over weight - Head Head exam: Present: normocephalic, atraumatic - Eye Eye exam: Present: EOMI Pupils: Present: SITA - ENT ENT exam: Present: normal exam - Neck Neck exam: Present: normal inspection - Respiratory Respiratory exam: Present: clear to auscultation bilaterally. Absent: wheezes - Cardiovascular Cardiovascular exam: Present: regular rate and rhythm - GI/Abdominal GI/Abdominal exam: Present: normal bowel sounds, soft. Absent: tenderness, rebound - Extremities Exam Extremities exam: Present: normal inspection - Back Exam Back exam: Present: normal inspection - Neurological Exam Neurological exam: Present: alert, oriented X3 - Psychiatric Psychiatric exam: Present: normal affect, normal mood - Skin Skin exam: Present: warm, intact Results - Labs CBC & BMP: 09/30/16 04:42 09/30/16 04:42 Quality Measures - Stroke Symptom Onset Unknown: No
[2016-10-02] MEDS: MIRTAZAPINE 15 MG TABLET PO SCH (20:42)
[2016-10-02] MEDS: ZALEPLON 5 MG CAPSULE PO SCH (20:42)
[2016-10-03] MEDS: CIPROFLOXACIN INJ 400 MG in PREMIX 1 EACH IV SCH ×2 (04:22→16:45)
[2016-10-03 05:41] LABS: Albumin 3.9 G/DL (3.4-5.0); Bilirubin,Direct 4.7 MG/DL (0.0-0.20); Bilirubin,Indirect 3.7 MG/DL (0.0-1.0); Bilirubin,Total 8.4 MG/DL (0.2-1.0); Total Protein 6.2 G/DL (6.4-8.3)
--- NOTE | 2016-10-03 06:32 | General Surgery Progress Note ---
Assessment and Plan (1) Cholelithiasis and acute cholecystitis with obstruction Status: Acute Assessment and plan: The patient's bilirubin has trended back up. I have discussed this case with Dr. Monte. Plans are being made for ERCP today. Interval cholecystectomy will be recommended pending the results of the ERCP. Current Visit: Yes Subjective Patient reports: Present: no new complaints, still having pain, nausea, afebrile Narrative: The bilirubin has gone back up to 8 today. It is about half conjugated and half unconjugated. The remainder of his LFTs are still elevated as well. Exam - Constitutional Vitals: Period Temp Pulse Resp BP Sys/Hoffman Pulse Ox Last 24 Hr 98.1 F-99.4 F 67-76 17-71 120-137/66-79 94-98 General appearance: no acute distress, over weight - Head Head exam: Present: normal inspection, normocephalic - Eye Eye exam: Present: EOMI, scleral icterus Pupils: Present: SITA - ENT ENT exam: Present: normal exam Mouth exam: Present: normal external inspection, normal voice - Neck Neck exam: Present: normal inspection, trachea midline - Respiratory Respiratory exam: Present: clear to auscultation bilaterally. Absent: accessory muscle use, chest wall tenderness - Cardiovascular Cardiovascular exam: Present: RRR. Absent: systolic murmur, tachycardia - GI/Abdominal GI/Abdominal exam: Present: normal bowel sounds, tenderness, soft. Absent: guarding, Mejia's sign, rebound - Extremities Exam Extremities exam: Present: normal inspection, normal capillary refill - Back Exam Back exam: Present: normal inspection - Neurological Exam Neurological exam: Present: alert, oriented X3 Speech: Present: normal - Skin Skin exam: Present: normal color, warm Results - Labs CBC & BMP: 09/30/16 04:42 09/30/16 04:42 Quality Measures - Stroke Symptom Onset Unknown: No
[2016-10-03] MEDS: ONDANSETRON 4 MG/2 ML VIAL IV PRN ×2 (06:56→17:58)
[2016-10-03 09:01] LABS: Basophils % 0.4 % (0.0-0.8); Eosinophils # 0.1 10*3/uL (0.0-0.87); Eosinophils % 1.7 % (0.00-10.9); Hematocrit 48.1 VOL% (42.0-52.0); Hemoglobin 17.3 GM/DL (14.0-18.0); Immature Granulocytes % 0.5 %; Immature Granulocytes Absolute 0.04 #; Lymphocytes # 0.9 10*3/uL (1.4-4.0); Lymphocytes % 11.2 % (21.2-54.2); Mean Corpuscular Hemoglobin 32 PG (27-34); Mean Corpuscular Volume 89.9 FL (87-102); Mean Platelet Volume 11.6 FL (9.6-12.0); Monocytes # 0.8 10*3/uL (0.11-0.8); Monocytes % 9.8 % (1.7-12.7); Neutrophils # 6.2 10*3/uL (1.4-7.4); Neutrophils % 76.4 % (38.7-73.9); Platelet Count 159 T/CUMM (130-400); Red Blood Count 5.35 MC/CUMM (3.8-5.5); White Blood Count 8.1 T/CUMM (4-12)
[2016-10-03 09:46] LABS: PT Patient Result 10.7 SECS
[2016-10-03] MEDS: ENOXAPARIN 40 MG/0.4 ML SYRINGE SUBCUT SCH (12:55)
[2016-10-03] MEDS ORDERED: fentaNYL 100 MCG/2 ML VIAL ONE (13:05)
[2016-10-03] MEDS ORDERED: MIDAZOLAM 2 MG/2 ML VIAL ONE (13:06)
--- NOTE | 2016-10-03 14:07 | History and Physical Update ---
History and Physical Update - History and Physical H&P was reviewed, the patient examined and there: are no changes in the patients condition since last H&P was completed. - Physical Exam Mental Status: alert and oriented Heart: regular rate and rhythm Lung: clear to auscultation Abdomen: within normal limits Vitals: within normal limits
[2016-10-03] MEDS ORDERED: LIDOCAINE 2% 5 ML VIAL ONE (14:10)
[2016-10-03] MEDS ORDERED: PROPOFOL 200 MG/20 ML VIAL IV ONE (14:10)
--- NOTE | 2016-10-03 14:30 | Operative Note ---
Date of procedure: 10/03/16 Pre-op diagnosis: Obstructive jaundice, gallstones Procedure: Procedure: Endoscopic retrograde cholangiopancreatography with common bile duct sphincterotomy and common bile duct stone removal with balloon Brief clinical abstract: Patient is a 41-year-old male admitted with recent biliary type abdominal pain and jaundice. He has gallstones on ultrasound and CT abdomen but common bile duct is not dilated. His total bilirubin was 8.4 today. Procedure findings: After informed consent was obtained, patient was placed in the prone position. Diagnostic video duodena scope was inserted in the upper esophagus in blind fashion with no resistance encountered. Esophageal mucosa appeared normal. Stomach was examined including retroflexed view of the cardia and fundus with no abnormality seen. The pyloric channel, duodenal bulb, second and third portion of the duodenum had normal appearance. Ampulla appearance was normal. Sphincterotome was used and this ampulla cannulated. Initially, simultaneous filling of the common bile duct and pancreatic duct was noted. Pancreatic duct was moderately filled to the head, neck and body with no filling defects seen. The endoscope was repositioned. Common bile duct was deeply cannulated and filled with contrast. There were 4 opaque filling defects consistent with stones estimated to be 7-10 mm diameter in the mid and distal common bile duct. Moderate dilation of the common bile duct/common hepatic duct was noted with maximal diameter around 11 mm. Intrahepatics were filled and had normal appearance. An approximately 1 cm common bile duct sphincterotomy was performed using the Erbe device on cut mode over the 0.035 inch guidewire. The sphincterotome was removed leaving the wire in place. Occlusion balloon was advanced into the proximal common hepatic duct. 3 separate passes were made dragging the balloon into the duodenum through the sphincterotomy opening. All 4 stones and some sludge material passed into the duodenum with balloon. Occlusion cholangiogram was obtained afterwards with no other residual filling defects seen other than a small amount of air. No bleeding was noted from the sphincterotomy site. He appeared to tolerate the procedure well. Impression: #1 choledocholithiasis-status post endoscopic removal as above #2 biliary dilatation related #1 #3 normal partial pancreatogram Recommendations: Cholecystectomy as planned. Anesthesia: MAC Surgeon / Physician: John Monte Estimated blood loss: none Specimens: none sent Condition: stable Disposition: post procedure unit Results - Labs CBC & BMP: 10/03/16 04:41 10/03/16 09:04 Discharge Plan - Discharge Medications No Action Vitamin B Complex 1,000 mcg PO DAILY Oxycodone HCl/Acetaminophen [Percocet 7.5-325 mg Tablet] 7.5 - 325 mg PO Q4- 6H PRN PRN Reason: Pain Mirtazapine 15 mg PO BEDTIME Glatiramer Acetate [Copaxone] 40 mg SQ MOWEFR Zolpidem [Ambien] 10 mg PO BEDTIME Testosterone [Androgel 1.62% Gel PUMP] 81 mg TOP DAILY Cholecalciferol (Vitamin D3) [Vitamin D3] 2,000 unit PO DAILY - Follow Up or Referral - Forms/Instructions
--- NOTE | 2016-10-03 14:36 | Anesthesia Post-Op ---
Anesthesia Post OP - Post Ansesthetic Evaluation Patient seen in post op: Yes Resp: within normal limits CV: within normal limits Mental: within normal limits Temp: within normal limits [id number]: within normal limits Nausea and Vomiting: within normal limits Pain: within normal limits
[2016-10-03] MEDS: POLYETHYLENE GLYCOL POWDER 17 GM PACK PO SCH (15:01)
[2016-10-03] MEDS: PANTOPRAZOLE 40 MG TABLET PO SCH (15:01)
--- NOTE | 2016-10-03 15:48 | Fluoroscopy Report ---
Exam: FL ERCP w sphincterotomy Date: 10/03/2016 8:30 AM Indication: Elevated liver function test Comparison: Nuclear medicine hepatobiliary imaging 10-01-2016 and ultrasound 10-[address] scan Findings: 2 minutes and 12 seconds and 15 cc of Omnipaque 240. Pancreatic duct is demonstrated without abnormality. The common bile duct left and right but radicals are visualized. The exam was performed by Dr. Steve Monte with the balloon sweep and, bile duct sphincterotomy and filling defects are present in the distal CBD on the initial image. The final image reveals no obvious residual defects clearly demonstrated. Impression: 1. Sphincterotomy and removal of stone from the common bile duct present. PROCEDURE INTERPRETED AT [facility] DEPARTMENT OF RADIOLOGY Final Report Signed by: Dr. John Higgins
[2016-10-03] MEDS ORDERED: traZODone 50 MG TABLET PO PRN (17:19)
--- NOTE | 2016-10-03 17:19 | Hospitalist Progress Note ---
Assessment and Plan (1) Abdominal pain Status: Acute Assessment and plan: HIDA scan 10/02/16 consistent with gallbladder dyskinesia ERCP today with stones removed Possible cholecystectomy tomorrow IV morphine for pain Current Visit: Yes (2) Constipation Status: Acute Current Visit: Yes (3) History of multiple sclerosis Status: Acute Current Visit: Yes (4) Pulmonary nodule in right lower lobe Status: Acute Current Visit: Yes (5) Cholelithiasis and acute cholecystitis with obstruction Status: Acute Assessment and plan: GI and surgery assisting Current Visit: Yes Hospitalist: Subjective Interval history: No acute events overnight. Patient seen after ERCP. Doing well, denies pain. Exam - Constitutional Vitals: Period Temp Pulse Resp BP Sys/Hoffman Pulse Ox Last 24 Hr 97.7 F-99.4 F 69-78 14-71 118-161/66-99 93-99 General appearance: over weight - Head Head exam: Present: normocephalic, atraumatic - Eye Eye exam: Present: EOMI Pupils: Present: SITA - ENT ENT exam: Present: normal exam - Neck Neck exam: Present: normal inspection - Respiratory Respiratory exam: Present: clear to auscultation bilaterally. Absent: wheezes - Cardiovascular Cardiovascular exam: Present: regular rate and rhythm - GI/Abdominal GI/Abdominal exam: Present: normal bowel sounds, soft. Absent: tenderness, rebound - Extremities Exam Extremities exam: Present: normal inspection - Back Exam Back exam: Present: normal inspection - Neurological Exam Neurological exam: Present: alert, oriented X3 - Psychiatric Psychiatric exam: Present: normal affect, normal mood - Skin Skin exam: Present: warm, intact Results - Labs CBC & BMP: 10/03/16 04:41 10/03/16 09:04 Quality Measures - Stroke Symptom Onset Unknown: No
[2016-10-03] MEDS: MORPHINE 2 MG/1 ML SYRINGE IV PRN (20:10)
[2016-10-03] MEDS: MIRTAZAPINE 15 MG TABLET PO SCH (21:00)
[2016-10-04] MEDS: CIPROFLOXACIN INJ 400 MG in PREMIX 1 EACH IV SCH (04:42)
[2016-10-04 06:26] LABS: Albumin 3.1 G/DL (3.4-5.0); Bilirubin,Direct 4.9 MG/DL (0.0-0.20); Bilirubin,Indirect 4.2 MG/DL (0.0-1.0); Bilirubin,Total 9.1 MG/DL (0.2-1.0); Total Protein 5.5 G/DL (6.4-8.3)
[2016-10-04] MEDS: ENOXAPARIN 40 MG/0.4 ML SYRINGE SUBCUT SCH (08:12)
[2016-10-04] MEDS: PANTOPRAZOLE 40 MG TABLET PO SCH (08:13)
[2016-10-04] MEDS: POLYETHYLENE GLYCOL POWDER 17 GM PACK PO SCH (08:14)
--- NOTE | 2016-10-04 10:28 | Gastrointestinal Progress Note ---
Assessment and Plan (1) Abdominal pain Status: Acute Assessment and plan: 10/04-abdominal pain improved, ERCP findings noted. For laparoscopic cholecystectomy today. LFTs noted as below. Plan an addendum will follow Dr. Monte. 09/30-1 week history of abdominal pain with episodes of nausea and vomiting. This is now improved following large bowel movement last night. History of daily Percocet use. CT findings noted below with questionable gallstone. Plan an addendum to follow Dr. Monte. Current Visit: Yes (2) Elevated liver enzymes Status: Acute Assessment and plan: 09/30-findings of elevated liver enzymes on admission, now slightly trending upward. History reported by patient of elevated enzymes over the last year with improvement following decrease in medication therapy. Questionable finding on CT of gallstone. Obtain abdominal ultrasound tomorrow to further evaluate. Recheck liver enzymes in the morning. Plan an addendum to followed by Dr. Monte. Current Visit: Yes Gastroenterology - PN: Subj Interval history: CC: Jaundice, gallstones Patient is seen awake and alert with family at bedside. He is post ERCP on yesterday with findings of choledocholithiasis with endoscopic removal. He states he does not have any abdominal pain at this time. Denies any nausea or vomiting. His bilirubin is noted to be up slightly at 9.1 however his transaminases are beginning to trend downward. He is scheduled for laparoscopic cholecystectomy later today. He is noted with swelling and erythema to his right elbow and forearm following IV infiltration on yesterday. Nursing staff is aware and continue to monitor. Abdomen is soft, nontender. ROS: Denies shortness of breath or chest pain Exam (Progress Note) - Constitutional Vitals: Period Temp Pulse Resp BP Sys/Hoffman Pulse Ox Last 24 Hr 97.9 F-99.2 F 69-78 14-20 103-161/54-99 93-99 General appearance: normal weight, no acute distress - Head Head exam: Present: normal inspection, normocephalic - Eye Eye exam: Present: other (Lids and conjunctive are unremarkable). Absent: scleral icterus - ENT ENT exam: Present: normal exam, normal oropharynx - Neck Neck exam: Present: normal inspection - Respiratory Respiratory exam: Present: clear to auscultation bilaterally. Absent: rales, rhonchi, wheezes - Cardiovascular Cardiovascular exam: Present: regular rate and rhythm. Absent: diastolic murmur , JVD, systolic murmur - GI/Abdominal GI/Abdominal exam: Present: normal bowel sounds, soft. Absent: ascites, distended, mass, organomegaly, tenderness - Extremities Exam Extremities exam: Present: normal inspection, full ROM - Back Exam Back exam: Present: normal inspection - Neurological Exam Neurological exam: Present: alert, oriented X3 - Psychiatric Psychiatric exam: Present: normal affect, normal mood - Skin Skin exam: Present: normal color, warm, dry Results - Labs CBC & BMP: 10/03/16 04:41 10/03/16 09:04 Lab Results: I have reviewed the past 24 hour labs
[2016-10-04] MEDS ORDERED: TISSUE ADHESIVE 1 EACH APPLICATOR TOP ONE (11:17)
[2016-10-04] MEDS ORDERED: PROPOFOL 200 MG/20 ML VIAL IV ONE (12:05)
[2016-10-04] MEDS ORDERED: ROCURONIUM 100 MG/10 ML VIAL IV ONE (12:05)
[2016-10-04] MEDS ORDERED: PHENYLEPHRINE 1 MG/10 ML SYRINGE IV ONE (12:05)
[2016-10-04] MEDS ORDERED: ONDANSETRON 4 MG/2 ML VIAL ONE ×2 (12:05→13:52)
[2016-10-04] MEDS ORDERED: LIDOCAINE 2% 5 ML VIAL ONE (12:05)
[2016-10-04] MEDS ORDERED: GLYCOPYRROLATE 0.4 MG/2 ML VIAL ONE (12:05)
[2016-10-04] MEDS ORDERED: NEOSTIGMINE 10 MG/10 ML VIAL ONE (12:05)
--- NOTE | 2016-10-04 13:22 | Operative Note ---
Date of procedure: 10/04/16 Pre-op diagnosis: Cholecystitis with choledocholithiasis Post-op diagnosis: same Procedure: Preoperative diagnosis Cholecystitis with choledocholithiasis Postoperative diagnosis Same Procedures performed Laparoscopic cholecystectomy with intraoperative cholangiogram Findings Acute and chronic cholecystitis was seen. The critical view of safety was obtained prior to placing clips on the cystic duct and cystic artery. Intraoperative cholangiogram showed no filling defects in the bile duct with good visualization of the biliary radicles and the cystic duct. Cystic duct was severely dilated. Complications None apparent Specimen Gallbladder Anesthesia GETA Blood loss 5 mL Indications Cholecystitis with choledocholithiasis. The risks, benefits, and alternatives of the operation were discussed with the patient in detail, and the expected outcomes were reviewed. In particular, the risk of bowel injury, liver injury, bile duct leak and bile duct injury, as well as pancreatitis and retained or drop stones were discussed in detail. All the patient's questions were answered. She like to proceed with the operation. Description of procedure The patient was taken to the operating room and transferred to the operating table in the supine position. Pressure points were padded and SCDs were placed to bilateral lower extremities. General endotracheal anesthesia was administered. The abdomen was prepped chlorhexidine and draped sterilely. Preoperative antibiotics were administered, a timeout was performed. The abdomen was entered in a supraumbilical location of the Veress needle. The skin incision was made in the supraumbilical location with a 11 blade scalpel after local anesthetic was administered. Umbilical stalk was grasped with a penetrating towel clip. A Veress needle was used to enter the peritoneal cavity confirmed by double click technique. Aspiration was negative. Saline drop test confirmed intraperitoneal location. The abdomen was insufflated to 15 mmHg with an initial insufflation pressure of 2 mmHg. The Veress needle was removed and a 5 mm trocar was placed blindly. The towel clip was removed. Diagnostic laparoscopy was performed. There is no evidence of Veress needle or trocar injury. The patient was placed in reverse Trendelenburg and left side rolled down position. Under direct visualization, and after local anesthetic was administered, an 11 mm midepigastric trocar and 2 right subcostal 5 mm trochars were placed. There is acute inflammation in the gallbladder. The gallbladder was grasped at the fundus and infundibulum. The cystic plate peritoneum was dissected into the critical view of safety was obtained. The cystic duct was severely dilated. A clip was placed at the gallbladder infundibulum cystic duct junction and a ductotomy was made. This was done with scissors. A cholangiogram catheter was inserted and a cholangiogram was performed. Cholangiogram revealed a dilated cystic duct but no filling defects seen in the bile duct and good visualization of the intrahepatic biliary radicles. The cholangiogram catheter was removed and the cystic duct was clipped twice centrally. The cystic artery was then clipped twice initially and once laterally and these 2 were both divided with scissors. Because of the dilation of the cystic duct I was concerned that the clips would not control the cystic duct completely so a chromic Endoloop was used to control the cystic duct below the 2 clips. The gallbladder was removed from the gallbladder fossa using the hook electrocautery. There was some spillage of bile and stones due to the friability of the gallbladder and it tore during the dissection off of the gallbladder fossa. All the stones were removed as they were spilled to make sure that there was no stones left behind and the bile was irrigated until it was completely removed. The gallbladder was placed in a Endo Catch retrieval bag through the 11 mm trocar and removed through the trocar with no significant fascial extension of the incision. The gallbladder fossa was suction irrigated until the effluent was clear. The CO2 was released from the abdomen and the trochars were removed. The skin incisions were closed with 4- 0 Monocryl subcuticular suture and sterile skin glue. The patient was awakened from anesthesia and transferred to recovery. Postoperative plan Advance diet as tolerated Pain control Anesthesia: MARCELL, local Surgeon / Physician: Skyler Ye Estimated blood loss: minimal Specimens: other (gallbladder) Condition: stable Disposition: PACU Results - Labs CBC & BMP: 10/03/16 04:41 10/03/16 09:04 Discharge Plan - Discharge Data Driving: other (Do not drive or operate heavy machinery for at least 24 hours and after you are off of narcotic pain medications.) Wound / Dressing Care Instructions: It is okay to shower. Do not scrub the incision aggressively or submerge it under water. - Discharge Medications New Oxycodone HCl/Acetaminophen [Oxycodone-Acetaminophen 10-325] 1 each PO Q6H PRN #40 tablet PRN Reason: Abdominal Pain No Action Vitamin B Complex 1,000 mcg PO DAILY Oxycodone HCl/Acetaminophen [Percocet 7.5-325 mg Tablet] 7.5 - 325 mg PO Q4- 6H PRN PRN Reason: Pain Mirtazapine 15 mg PO BEDTIME Glatiramer Acetate [Copaxone] 40 mg SQ MOWEFR Zolpidem [Ambien] 10 mg PO BEDTIME Testosterone [Androgel 1.62% Gel PUMP] 81 mg TOP DAILY Cholecalciferol (Vitamin D3) [Vitamin D3] 2,000 unit PO DAILY - Follow Up or Referral Follow Up: Skyler Ye MD [Physician] - 2 Weeks - Forms/Instructions
--- NOTE | 2016-10-04 13:42 | Anesthesia Post-Op ---
Anesthesia Post OP - Post Ansesthetic Evaluation Patient seen in post op: Yes Resp: within normal limits CV: within normal limits Mental: within normal limits Temp: within normal limits [id number]: within normal limits Nausea and Vomiting: within normal limits Pain: within normal limits
[2016-10-04] MEDS ORDERED: fentaNYL 100 MCG/2 ML VIAL ONE (13:44)
[2016-10-04] MEDS ORDERED: SEVOFLURANE 1 UNIT/15 MINUTE INH ONE (13:44)
[2016-10-04] MEDS ORDERED: MIDAZOLAM 2 MG/2 ML VIAL ONE (13:44)
[2016-10-04] MEDS: HYDROmorphone 2 MG/1 ML VIAL IV PRN ×4 (13:50→14:05)
[2016-10-04] MEDS ORDERED: HYDROmorphone 2 MG/1 ML VIAL ONE (13:52)
--- NOTE | 2016-10-04 13:57 | Fluoroscopy Report ---
Exam: [place] cholangiogram in surgery Date: 10/04/2016 Indication: Pain Comparison: ERCP with sphincterotomy 10/03/2016 and ultrasound 10/01/2016 and nuclear medicine 10/02/2016. Findings: 7 fluoroscopic images were obtained with 25.[address] Ye. The exam demonstrates a small amount extravasation of contrast. The cystic duct is demonstrated the left and right biliary radicals and common bile duct are demonstrated. Contrast flows through the CBD through the ampulla into the duodenum. No obvious stones or filling defects present. Impression: 1. Intraoperative cholangiogram without evidence of stones with mild extravasation of contrast from the injection at the cystic duct noted. PROCEDURE INTERPRETED AT [facility] DEPARTMENT OF RADIOLOGY Final Report Signed by: Dr. John Higgins
[2016-10-04] MEDS ORDERED: ONDANSETRON 4 MG/2 ML VIAL IV PRN (14:02)
--- NOTE | 2016-10-04 16:24 | Discharge Summary ---
Hospital Course - Hospital Course Hospital Course: Mr. Jhaveri is a 41 year old male with past medical history significant for fatty liver and multiple sclerosis who presented to our hospital complaining about abdominal pain. Said it started last . It had been steadily increasing. Decided to come up to our hospital for further evaluation. He reported some low-grade fever, nausea and vomiting. The pain seemed worse after meals. Gastroenterology and Surgery was consulted. CT scan with nonspecific pulmonary nodule in right lower lobe, severe fatty liver and splenomegaly. Recommend PET scan for pulmonary nodule. Abdominal ultrasound with cholelithiasis with large amount of sludge and diffuse gallbladder wall thickening. LFTs started to trend down before rising again. GI performed ERCP with four stones removed and mild duct dilation. Surgery performed a cholecystectomy today. He is tolerating a diet. He has now reached maximal benefit of inpatient stay and will be discharged to home. - Time spent with patient Time with patient DS: Greater than 30 minutes (35) Diagnosis - Discharge Diagnosis (1) Abdominal pain Status: Resolved (2) Constipation Status: Resolved (3) History of multiple sclerosis Status: Chronic (4) Pulmonary nodule in right lower lobe Status: Acute (5) Cholelithiasis and acute cholecystitis with obstruction Status: Resolved Specialty Discharge - Follow Up or Referrals Follow up with: Skyler Ye MD [Physician] - 2 Weeks Discharge Plan - Discharge Data Disposition: Disch To Home/Self Care Condition at Discharge: Stable Discharge Diet: advance to your usual diet Activity: increase activity as tolerated Hygiene: no restrictions Weight Bearing at Discharge: weight bear as tolerated Driving: no restrictions Contact your physician if you experience:: fever over 101, Shortness of breath - Discharge Medications New Oxycodone HCl/Acetaminophen [Oxycodone-Acetaminophen 10-325] 1 each PO Q6H PRN #40 tablet PRN Reason: Abdominal Pain Continue Vitamin B Complex 1,000 mcg PO DAILY Mirtazapine 15 mg PO BEDTIME Glatiramer Acetate [Copaxone] 40 mg SQ MOWEFR Zolpidem [Ambien] 10 mg PO BEDTIME Testosterone [Androgel 1.62% Gel PUMP] 81 mg TOP DAILY Cholecalciferol (Vitamin D3) [Vitamin D3] 2,000 unit PO DAILY No Action Oxycodone HCl/Acetaminophen [Percocet 7.5-325 mg Tablet] 7.5 - 325 mg PO Q4- 6H PRN PRN Reason: Pain - Follow Up or Referral Follow Up: Skyler Ye MD [Physician] - 2 Weeks - Forms/Instructions Exam - Constitutional Vitals: Period Temp Pulse Resp BP Sys/Hoffman Pulse Ox Last 24 Hr 97.9 F-99.4 F 68-83 16-20 103-147/54-94 96-100 General appearance: over weight - Head Head exam: Present: normocephalic, atraumatic - Eye Eye exam: Present: EOMI Pupils: Present: SITA - ENT ENT exam: Present: normal exam - Neck Neck exam: Present: normal inspection - Respiratory Respiratory exam: Present: clear to auscultation bilaterally. Absent: wheezes - Cardiovascular Cardiovascular exam: Present: regular rate and rhythm - GI/Abdominal GI/Abdominal exam: Present: normal bowel sounds, soft. Absent: tenderness, rebound - Extremities Exam Extremities exam: Present: normal inspection - Back Exam Back exam: Present: normal inspection - Neurological Exam Neurological exam: Present: alert, oriented X3 - Psychiatric Psychiatric exam: Present: normal affect, normal mood - Skin Skin exam: Present: warm, intact Discharge Results Procedures and tests throughout hospitalization: Pending Orders 09/29/16 20:56 Blood Culture Stat Labs on day of discharge: Labs from last 24 hours 10/04/16 05:31 Total Bilirubin 9.10 H Direct Bilirubin 4.90 H Indirect Bilirubin 4.2 H AST 125 H ALT 417 H Alkaline Phosphatase 210 H Total Protein 5.5 L Albumin 3.1 L Preliminary micro results at discharge 09/29/16 20:56 Blood Culture - Preliminary Blood No growth at 3 days 09/29/16 20:33 Blood Culture - Preliminary Blood No growth at 3 days DS: Provider Date of admission: 10/01/16 16:40 Primary care physician: . No PCP Attending physician on admission: Elian Etienne MD Consults: 09/29/16 23:23 Consult to Physician [CONS] Routine Comment: increased liver enzymes Consulting Provider: John Monte Person Notified: corrine Date Notified: 09/30/16 Time Notified: 08:43 10/01/16 12:20 Consult to Physician [CONS] Routine Comment: Jaundice w/GB stones and ? cholecystitis Consulting Provider: Skyler Ye Consulting Provider Notified: Yes Discharging clinician: Rory Anthony MD
[2016-10-04 17:09] VITALS: BP 109/66
--- NOTE | 2016-10-05 11:23 | Pathology Report from [facility] ---
[facility] ACCESSION # : [id number] PATIENT NAME : Luis Michaels ORDERING DR : Skyler Ye MD CLINICAL HX: Cholelithiasis - Acute cholecystitis POST-OP DX: Same SPECIMEN INFO: Gallbladder GROSS DESCRIPTION: The specimen is received in formalin labeled with the patients name and consists of a gallbladder measuring 7.5 x 2.8 cm. The serosa is smooth and erythematous. The wall averages 0.3 cm in thickness. The mucosal surface is velvety and contreras. The lumen contains hemorrhagic bile with a 0.8 x 0.7 cm black stone noted. Prefinish Operator sections submitted in one cassette. DIAGNOSIS FOR LUIS MIHCAELS: GALLBLADDER, CHOLECYSTECTOMY: Chronic cholecystitis. Cholelithiasis. COLLECTED DATE: 10/04/2016 [facility] REPORT DATE: 10/05/2016 ELECTRONICALLY SIGNED BY: Hayden Crawford M.D. 10/05/2016 - 9:58:56 [facility]TDD
== END 2016-10-04 17:48 | disposition home or self-care (01) | DRG 419 ==
LOC: N.EDINP 20:13 → N.ED 20:13 → SUATTDRO 23:23 → N.2E 23:53 → N.SDSINP 10-01 13:26
PROVIDERS: ADMIT Internal Medicine; ATTEND Internal Medicine
PROC: ERCPWSP (ICD-10-PCS; 2016-10-03 12:05)
PROC: LAPCHOL (2016-10-04 12:05)